=== PATIENT | male | born 1965 | race Asian ===

== ENCOUNTER 2017-09-27 18:22 | Inpatient (IN) | payer OTHER ==
[~2017-09-27] VITALS: Ht 180.3 cm; Wt 75.1 kg
[2017-09-27 18:30] VITALS: Ht 180.3 cm; Wt 75.1 kg
[2017-09-27 18:56] LABS: BASOPHIL % 0.2 % (0-2); PLATELET COUNT 235 x10^3mcL (130-400); RED CELL DISTRIBUTION WIDTH 14.1 % (11.5-14.5)
[2017-09-27 19:34] LABS: T3 TOTAL 0.99 ng/mL
[2017-09-27 19:37] LABS: CALCIUM 9.6 mg/dL (8.5-10.1); CARBON DIOXIDE 23.7 mmol/L (21-32); CREATININE SERUM 1.9 mg/dL (0.7-1.3); POTASSIUM SERUM 4.6 mmol/L (3.5-5.1)
[2017-09-27 19:42] LABS: ALBUMIN 4.1 g/dL (3.4-5.0); BILIRUBIN TOTAL 0.3 mg/dL (0.20-1.00); CHOLESTEROL/HDL RATIO 2.3; TOTAL PROTEIN, SERUM 7.5 g/dL (6.4-8.2)
[2017-09-27] MEDS ORDERED: LOSARTAN POTAS100 M1 PO (20:14)
[2017-09-27] MEDS ORDERED: LIPI20 PO (20:14)
[2017-09-27] MEDS ORDERED: GLUCOTROL5 MG PO (20:14)
[2017-09-27] MEDS ORDERED: LIPI10 PO (20:15)
[2017-09-27] MEDS ORDERED: METFORMIN HCL500 MG PO (20:15)
[2017-09-27 20:19] LABS: FREE T4 0.86 ng/dL (0.76-1.46); FREE THYROXINE INDEX 2.1 ug/dL (1.4-4.5); T4(THYROXINE) 5.9 ug/dL (4.7-13.3)
[2017-09-27 20:31] LABS: PHOSPHOROUS 2.9 mg/dL (2.5-4.9)
[2017-09-27 21:22] VITALS: BP 124/69
[2017-09-28 01:27] LABS: microscopic required? NO
[2017-09-28 01:35] LABS: urine erythrocyte NEGATIVE (NEGATIVE)
[2017-09-28 01:43] LABS: AMPHETAMINE QUAL UR NONE DETECTED
[2017-09-28 04:56] VITALS: BP 145/79
[2017-09-28 06:45] LABS: BASOPHIL % 0.3 % (0-2); PLATELET COUNT 249 x10^3mcL (130-400)
[2017-09-28 06:49] LABS: CALCIUM 8.5 mg/dL (8.5-10.1); CARBON DIOXIDE 26.4 mmol/L (21-32); CHLORIDE SERUM 106 mmol/L (98-107); CREATININE SERUM 1.2 mg/dL (0.7-1.3); GFR1 > 60 mL/min; GLUCOSE SERUM 82 mg/dL (74-106); POTASSIUM SERUM 4.4 mmol/L (3.5-5.1); SODIUM SERUM 142 mmol/L (136-145)
[2017-09-28 07:52] LABS: RED CELL DISTRIBUTION WIDTH 14.9 % (11.5-14.5)
[2017-09-28 08:59] VITALS: BP 141/86
[2017-09-28] MEDS ORDERED: MOT800 PO (09:17)
[2017-09-28] MEDS ORDERED: THERAGRAN-M1 TA4 PO (09:17)
[2017-09-28] MEDS ORDERED: THI100 PO (09:17)
[2017-09-28] MEDS ORDERED: FOL1 PO (09:17)
[2017-09-28] MEDS ORDERED: METFORMIN HCL500 MG PO (11:05)
[2017-09-28 11:40] VITALS: BP 141/86
[2017-09-28 12:30] VITALS: BP 140/89
== END 2017-09-28 16:58 | disposition home or self-care (01) | DRG 73 ==
LOC: ED 18:22 → DU 19:45
PROVIDERS: Specialist; Student in an Organized Health Care Education/Training Program
DX: G90.9 Disorder of the autonomic nervous system, unspecified (principal); N17.0 Acute kidney failure with tubular necrosis; G92 Toxic encephalopathy; F10.239 Alcohol dependence with withdrawal, unspecified; W18.30XA Fall on same level, unspecified, initial encounter; Y93.89 Activity, other specified; Y92.89 Other specified places as the place of occurrence of the external cause; Y99.8 Other external cause status; E11.9 Type 2 diabetes mellitus without complications; I10 Essential (primary) hypertension; S01.512A Laceration without foreign body of oral cavity, initial encounter; E78.5 Hyperlipidemia, unspecified; E11.65 Type 2 diabetes mellitus with hyperglycemia; F10.229 Alcohol dependence with intoxication, unspecified; D64.9 Anemia, unspecified; E66.9 Obesity, unspecified; Z68.23 Body mass index [BMI] 23.0-23.9, adult; S01.21XA Laceration without foreign body of nose, initial encounter; F17.210 Nicotine dependence, cigarettes, uncomplicated; Z23 Encounter for immunization
CPT/HCPCS: 82962; 83880; 84439; 90715; G0480; J0696; J7030; Q0092